=== PATIENT | male | born 1955 | race Caucasian/White ===

== ENCOUNTER 2022-01-04 15:15 | Emergency (ER) | payer OTHER ==
[~2022-01-04] VITALS: Ht 182.9 cm; Wt 86.4 kg
[2022-01-04 15:16] VITALS: TEMP 98
[2022-01-04 16:01] LABS: ALBUMIN 4.3 gm/dL (3.4-4.8); BILIRUBIN,TOTAL 0.6 mg/dL (0.2-1.2); CALCIUM 9.1 mg/dL (8.4-10.2); CREATININE, serum 1.05 mg/dL (0.72-1.25); TOTAL PROTEIN 7.3 gm/dL (6.2-8.1)
[2022-01-04 16:58] VITALS: BP 150/95; PULSE 72
== END 2022-01-04 16:58 | disposition home or self-care (01) ==
LOC: COL.ER
PROVIDERS: Nurse Practitioner Primary Care
DX: S30.1XXA Contusion of abdominal wall, initial encounter (principal); S20.219A Contusion of unspecified front wall of thorax, initial encounter; M54.50 Low back pain, unspecified; V43.52XA Car driver injured in collision with other type car in traffic accident, initial encounter; Y92.410 Unspecified street and highway as the place of occurrence of the external cause
CPT/HCPCS: J1885; Q9967

== ENCOUNTER 2022-08-17 10:12 | Day surgery (SDC) | payer BC ==
[~2022-08-17] VITALS: Ht 182.9 cm; Wt 89.3 kg
--- NOTE | 2022-08-17 10:43 | NUR ---
EKG AT BEDSIDE.
[2022-08-17] MEDS ORDERED: RYBELSUS7 MG PO (10:44)
[2022-08-17] MEDS ORDERED: GLUCOPHAGE XR750 MG PO (10:45)
[2022-08-17] MEDS ORDERED: CRESTOR40 MG PO (10:45)
--- NOTE | 2022-08-17 10:52 | NUR ---
LAB AT BEDSIDE.
--- NOTE | 2022-08-17 10:54 | NUR ---
XRAY AT BEDSIDE.
[2022-08-17 10:56] VITALS: BP 140/77; PULSE 66; TEMP 97.4
[2022-08-17 11:09] LABS: BASO % 0.6 % (0.0-2.0); EOS # 0.2 K/mm3 (0.0-0.7); EOS % 3.5 % (0.0-4.0); GRAN # 3.1 K/mm3 (1.4-6.5); GRAN % 56.8 % (42.2-75.2); LYMPH # 1.7 K/mm3 (1.2-3.4); LYMPH % 31.9 % (20.0-51.0); MEAN CELL VOLUME 87 fl (80.0-100.0); MEAN CORPUSCULAR HEMOGLOBIN 30 pg (27-31); MEAN CORPUSCULAR HGB CONC 34 g/dl (33.0-37.0); MEAN PLATELET VOLUME 10.1 fl (7.4-10.4); MONO # 0.4 K/mm3 (0.1-0.6); MONO % 6.6 % (1.7-9.3); PLATELET COUNT 177 K/mm3 (130-400); RED BLOOD COUNT 4.74 M/mm3 (4.20-5.60); REDCELL DISTRIBUTION WIDTH-CV 12.1 % (11.5-14.5)
[2022-08-17 11:30] LABS: CALCIUM 9.2 mg/dL (8.4-10.2); CREATININE, serum 0.96 mg/dL (0.72-1.25); POTASSIUM 4.3 mmol/L (3.5-4.5)
[2022-08-17] MEDS ORDERED: NORCO 325 MG-51 TAB PO (14:30)
[2022-08-17] MEDS ORDERED: MOTRIN 600600 MG/TAB PO (14:31)
[2022-08-17 15:05] VITALS: BP 144/73; PULSE 75; TEMP 97
--- NOTE | 2022-08-17 15:05 | NUR ---
PT TRANSPORTED BACK TO RECOVERY BAY 3 FROM PACU VIA STRETCHER. REPORT RECEIVED FROM CARLEY JANE. PT A&OX3, STATES PAIN 10/24 AT THIS TIME. ABD SOFT, NONTENDER, FLAT; DRSG X4 C, D, I. HEART RATE REGULAR, LUNG SOUNDS CLEAR BILATERALLY. PT TOLERATING PO LIQUIDS WELL. SPOUSE AT BEDSIDE. CALL GARCIA WITHIN REACH; SAFETY MAINTAINED.
[2022-08-17 15:18] VITALS: TEMP 98.5
[2022-08-17 15:25] VITALS: BP 144/64; PULSE 73
--- NOTE | 2022-08-17 15:35 | NUR ---
PT AMBULATED TO BR WITH ASSISTANCE WELL. NO PROBLEMS URINATING.
[2022-08-17 15:40] VITALS: BP 151/88; PULSE 78
--- NOTE | 2022-08-17 15:51 | NUR ---
PT TOLERATING PUDDING WELL. DISCHARGE INSTRUCTIONS GIVEN TO PT AND SPOUSE; QUESTIONS ANSWERED; UNDERSTANDING VERBALIZED.
[2022-08-17 15:55] VITALS: BP 147/85; PULSE 79
--- NOTE | 2022-08-17 16:10 | NUR ---
PT DISCHARGED OUT OF DEPT VIA WC WITH SPOUSE DRIVING. SAFETY MAINTAINED.
== END 2022-08-17 16:10 | disposition home or self-care (01) ==
LOC: SDCO 10:12
PROVIDERS: Surgery
DX: K40.20 Bilateral inguinal hernia, without obstruction or gangrene, not specified as recurrent (principal)
CPT/HCPCS: C1781; J0690; J1100; J2405; J2704; J3010